=== PATIENT | female | born 1965 ===

== ENCOUNTER → 2023-04-26 06:38 | Day surgery (SDC) | payer OTHER, SELFPAY | LOC: GI 06:38 | PROVIDERS: ATTENDING PHYSICIAN Internal Medicine Gastroenterology; FAMILY PHYSICIAN Nurse Practitioner Adult Health | DX: Z12.11 Encounter for screening for malignant neoplasm of colon (principal); K64.8 Other hemorrhoids; K57.30 Diverticulosis of large intestine without perforation or abscess without bleeding; D12.0 Benign neoplasm of cecum; Z86.010 Personal history of colon polyps | CPT/HCPCS: 45385; 88305 ==

== ENCOUNTER → 2024-09-01 15:59 | Outpatient (REF) | payer OTHER, SELFPAY | LOC: HWRAD 15:59 | PROVIDERS: FAMILY PHYSICIAN Nurse Practitioner Adult Health | DX: M25.532 Pain in left wrist (principal) | CPT/HCPCS: 73110 ==